=== PATIENT | male | born 1965 | race Caucasian/White ===

== ENCOUNTER 2020-01-23 18:56 | Inpatient (IN) | payer OTHER ==
[~2020-01-23] VITALS: Ht 182.9 cm; Wt 122.9 kg
--- NOTE | 2020-01-23 19:38 | ER.PDOC ---
General Chief Complaint: Requesting Medical Care Stated Complaint: BACK PAIN/ABD PAIN Time seen by MD: 19:31 Source: patient, family Exam Limitations: no limitations History of Present Illness Initial Comments Patient c/o sudden onset left flank pain radiating to he groin this evening. Pain became so severe it caused him to vomit. Nausea has now settled down, but left flank pain persists. Timing/Duration: 1-3 hours Severity/Quality: severe, sharpness, stabbing Radiation: flank (left), groin (left) Associated Symptoms: nausea/vomiting Exacerbated by: nothing Relieved By: nothing Allergies: Coded Allergies: No Known Allergies (Unverified , 01/23/20) Vital Signs First Vital Signs Date Time Temp Pulse Resp B/P (MAP) Pulse Ox O2 Delivery O2 Flow Rate FiO2 01/23/20 20:58 98.2 54 20 01/23/20 20:58 154/103 (120) 98 01/23/20 21:58 Nasal Canula 2.00 Last Vital Signs Date Time Temp Pulse Resp B/P (MAP) Pulse Ox O2 Delivery O2 Flow Rate FiO2 01/23/20 21:58 98.4 63 18 139/66 (90) 98 Nasal Canula 2.00 Past Medical History Medical History: hypertension Surgical History: no surgical history Family History Significant Family History: no pertinent family hx Social History Alcohol Use: none Drug Use: none Constitutional: diaphoresis (at onset of pain) EENTM: no symptoms reported Respiratory: no symptoms reported Cardiovascular: no symptoms reported Gastrointestinal: nausea, vomiting (x 1) Genitourinary: flank pain (left) Musculoskeletal: no symptoms reported Skin: no symptoms reported Psychiatric/Neurological: no symptoms reported Endocrine: no symptoms reported Hematologic/Lymphatic: no symptoms reported All Other Systems: Reviewed and Negative Physical Exam General Appearance: WD/WN, Moderate Distress (pacing around room in pain), Obese HEENT: PERRL/EOMI, Normal ENT Inspection Neck: Non-Tender, Full Range of Motion, Supple Respiratory: chest non-tender, lungs clear, normal breath sounds, no respiratory distress, no accessory muscle use Cardiovascular: Regular Rate, Rhythm, No Edema, No Murmur Gastrointestinal: Normal Bowel Sounds, No Pulsatile Mass, Soft Back: Normal Inspection, No CVA Tenderness, No Vertebral Tenderness Extremities: Normal Range of Motion, Non-Tender, No Pedal Edema, No Calf Tenderness Neurologic/Psychiatric: No Motor/Sensory Deficits, Alert, Normal Mood/Affect Skin: Normal Color, Warm/Dry Results/Orders Results/Orders Orders - FRANTZ MAY DO Cbc With Auto Diff (01/23/20 19:29) Comprehensive Metabolic Panel (01/23/20 19:29) Amylase (01/23/20 19:29) Lipase (01/23/20 19:29) PT (01/23/20 19:29) Partial Thromboplastin Time. (01/23/20 19:29) Urinalysis (01/23/20 19:29) Saline Lock (01/23/20 19:29) Ct Abd/Pelvis Wo Iv Contrast (01/23/20 19:29) Ketorolac Tromethamine (Toradol) (01/23/20 19:49) 0.9 % Sodium Chloride (Ns 1000ml) (01/23/20 19:48) Urine Culture (01/23/20 19:35) Tamsulosin Hcl (Flomax) (01/23/20 19:57) Tamsulosin Hcl (Flomax) (01/23/20 19:59) Fentanyl Citrate/Pf (Sublimaze) (01/23/20 21:21) Ondansetron Hcl/Pf (Zofran) (01/23/20 21:22) Ceftriaxone Sodium (Rocephin) (01/23/20 21:26) Ondansetron Hcl/Pf (Zofran) (01/23/20 21:47) Ceftriaxone Sodium (Rocephin) (01/23/20 21:47) Fentanyl Citrate/Pf (Sublimaze) (01/23/20 21:47) Fentanyl Citrate/Pf (Sublimaze) (01/23/20 22:47) Vital Signs Date Time Temp Pulse Resp B/P (MAP) Pulse Ox O2 Delivery O2 Flow Rate FiO2 01/23/20 21:58 98.4 63 18 139/66 (90) 98 Nasal Canula 2.00 01/23/20 20:58 98.2 54 20 98 01/23/20 20:58 98.2 54 20 154/103 (120) 98 01/23/20 20:58 98.2 54 20 Administered Medications Medications (Trade) Dose Ordered Sig/Lucius Route PRN Reason Start Time Stop Time Status Last Admin Dose Admin Ceftriaxone Sodium 1000 mg/ Sodium Chloride 100 ml @ 100 mls/hr STAT STAT IV 01/23/20 21:26 01/23/20 22:25 UNV 01/23/20 21:56 100 MLS/HR Fentanyl Citrate (Sublimaze) 100 mcg STAT STAT IV 01/23/20 21:21 01/23/20 21:23 DC 01/23/20 21:56 100 MCG Ketorolac Tromethamine (Toradol) 30 mg STAT STAT IV 01/23/20 19:49 01/23/20 19:50 UNV 01/23/20 19:53 30 MG Ondansetron HCl (Zofran) 4 mg STAT STAT IV 01/23/20 21:22 01/23/20 21:23 DC 01/23/20 21:56 4 MG Tamsulosin HCl (Flomax) 0.4 mg STAT STAT PO 01/23/20 19:57 01/23/20 19:58 DC 01/23/20 20:07 0.4 MG Laboratory Tests Test 01/23/20 19:35 White Blood Count 6.3 10^3/uL (4.5-11.0) Red Blood Count 5.02 10^6/uL (4.50-5.90) Hemoglobin 15.5 g/dL (13.9-16.3) Hematocrit 44.4 % (37.0-53.0) Mean Corpuscular Volume 88.4 fL (78-100) Mean Corpuscular Hemoglobin 30.9 pg (26-34) Mean Corpuscular Hemoglobin Concent 34.9 g/dL (33-36.5) Red Cell Distribution Width 12.9 % (11.5-14.5) Platelet Count 251 10^3/uL (150-400) Mean Platelet Volume 9.3 fL (7.8-11.0) Neutrophils (%) (Auto) 59.9 % (41.0-85.0) Lymphocytes (%) (Auto) 27.6 % (24.0-44.0) Monocytes (%) (Auto) 8.7 % (5.0-12.0) Neutrophils # (Auto) 3.8 10^3/uL (1.8-7.7) Lymphocytes # (Auto) 1.75 10^3/uL1 (1.0-4.8) Monocytes # (Auto) 0.6 10^3/uL (0.3-0.8) Absolute Immature Granulocyte (auto 0.01 10^3 u/L (0-2) Absolute Eosinophils (auto) 0.2 10^3/uL (0.0-0.2) Immature Granulocytes % 0.20 % (0.00-0.50) Eosinophils % 3.0 % (0.0-5.0) Basophils % 0.6 % (0.0-0.2) H Basophils # 0.0 10^3/uL (0.0-0.1) Prothrombin Time 11.1 SEC (9.3-11.3) Prothrombin Time INR (Non-Therap) 1.1 Activated Partial Thromboplast Time 22.6 SEC (24.67-30.72) Urine Collection Type UNKNOWN Urine Color YELLOW (YELLOW) Urine Appearance CLEAR (CLEAR) Urine Bilirubin NEGATIVE MG/DL (NEGATIVE) Urine Ketones NEGATIVE (NEGATIVE) Urine Specific [place] 1.030 (1.005-1.035) Urine pH 5.5 (5.0-6.0) Urine Protein 30 mg/dL (NEGATIVE) H Urine Urobilinogen NORMAL (NEGATIVE) Urine Nitrate NEGATIVE (NEGATAIVE) Urine Leukocyte Esterase NEGATIVE (NEGATIVE) Urine Blood LARGE (NEGATIVE) Urine RBC TNTC RBC/HPF (NONE SEEN) H Urine WBC 0-2 WBC/HPF (0-2) Urine Squamous Epithelial Cells RARE #/HPF (FEW) Urine Bacteria RARE (NONE SEEN) Urine Glucose NORMAL (NEGATIVE) Sodium Level 138 mmol/L (132-145) Potassium Level 3.8 mmol/L (3.6-5.2) Chloride Level 104.0 mmol/L (96-109) Carbon Dioxide Level 26.8 mmol/L (20.0-32) Anion Gap 11.0 Blood Urea Nitrogen 16 mg/dL (7-18) Creatinine 1.29 mg/dL (0.59-1.40) Estimated GFR () 70.8 (>/=60) Est GFR (CKD-EPI)(Non-Afr [place]) 58.5 (>/=60) BUN/Creatinine Ratio 12.0 Glucose Level 109 mg/dL (70-110) Calcium Level 9.5 mg/dL (8.4-10.5) Total Bilirubin 0.5 mg/dL (0.2-1.0) Aspartate Amino Transferase (AST) 18 U/L (0-35) Alanine Aminotransferase (ALT) 38 U/L (12-78) Alkaline Phosphatase 96 U/L (50-136) Total Protein 7.6 g/dL (6.4-8.2) Albumin 4.2 g/dL (3.4-5.0) Globulin 3.4 Albumin/Globulin Ratio 1.235 Amylase Level 55 U/L (25-115) Lipase 138 U/L (114-286) Progress Progress blood in urine, renal function WNL, WBC normal, no UTI though there is blood in urine--rocephin given prophylactically Toradol + 100 fentanyl + flomax + 50 fentanyl and patient is still writhing on the bed. I tried to reach Dr. Camp on home and cell phone unsuccessfully and VM has not been set up on either. Dr. Lambert agreed to admit patient to his service with consult Dr. Camp in the morning. EKG/XRAY/CT/US CT Comments: minimal L hydronephrosis and hydroureter with 2mm stone @ UVJ Consult/PCP Time Consult/PCP Called: 22:50 Consult/PCP: Dr. Camp Reason/Comments: unable to reach at home or cell number (mailboxes not set up) #2 Time Consult/PCP Called: 22:50 Consult/PCP: Dr. Lambert Reason/Comments: will admit ER DEPART Departure Time of Disposition: 22:57 Disposition: 09 ADMITTED INPATIENT Impression: Primary Impression: Renal colic on left side Additional Impressions: Ureterolithiasis Hydroureteronephrosis Condition: Improved Referrals: [facility] (PCP) PRIMARY CARE PROVIDER Duration or Time Spent with Pa: 30 min Problem Qualifiers FRANTZ MAY DO Jan 23, 2020 19:38
[2020-01-23 19:41] LABS: BASOPHIL % 0.6 % (0.0-0.2); EOSINOPHIL # 0.2 10^3/uL (0.0-0.2); LYMPHOCYTES # 1.75 10^3/uL1 (1.0-4.8); LYMPHOCYTES % 27.6 % (24.0-44.0); MEAN CORP HGB 30.9 pg (26-34); MONOCYTES # 0.6 10^3/uL (0.3-0.8); MONOCYTES % 8.7 % (5.0-12.0); NEUTROPHIL # 3.8 10^3/uL (1.8-7.7); NEUTROPHILS % 59.9 % (41.0-85.0); PLATELET COUNT 251 10^3/uL (150-400); RED CELL DISTRIBUTION WIDTH 12.9 % (11.5-14.5)
[2020-01-23] MEDS ORDERED: NS 1000ML 1,000 ML ONE (19:48)
[2020-01-23] MEDS ORDERED: TORADOL IV STA (19:49)
[2020-01-23 19:54] LABS: APPEARANCE,URINE CLEAR (CLEAR); BILIRUBIN,URINE NEGATIVE (NEGATIVE); UA COLOR YELLOW (YELLOW); UROBILINOGEN,URINE NORMAL (NEGATIVE)
--- NOTE | 2020-01-23 19:54 | NUR ---
CT PATIENT AMBULATED TO CT, STEADY GAIT. DIAPHORETIC DUE TO PAIN, TORADOL ADMINISTERED ORDERED.
[2020-01-23] MEDS ORDERED: FLOMAX PO STA (19:57)
[2020-01-23 19:59] LABS: CALCIUM 9.5 mg/dL (8.4-10.5); CARBON DIOXIDE 26.8 mmol/L (20.0-32)
[2020-01-23] MEDS ORDERED: FLOMAX ONE (19:59)
--- NOTE | 2020-01-23 20:46 | DIREP ---
PROCEDURE:CT ABDOMEN/PELVIS W/O CONTRAST COMPARISON:None. INDICATIONS:flank pain TECHNIQUE:Axial images were created through the abdomen and pelvis without intravenous contrast material. No oral contrast was administered. Sagittal and coronal reconstructions were performed from source images. FINDINGS: LUNG BASES:Normal. No visible pulmonary or pleural disease. LIVER:Normal. No significant liver lesions are identified. BILIARY:Minimal left hydronephrosis and hydroureter with distal obstructing stone measuring 2 mm at the left ureterovesicular junction. PANCREAS:Normal. No lesion, fluid collection, ductal dilatation, or atrophy. SPLEEN:Normal. No enlargement or focal lesion. ADRENALS:Normal. No mass or enlargement. URINARY TRACT:Normal. No focal lesions or hydronephrosis. AORTA/VASCULAR:Normal. No aneurysm. RETROPERITONEUM:Normal. No mass or adenopathy. BOWEL/MESENTERY:Normal. There is no intestinal obstruction, free fluid, free air or mesenteric inflammatory changes. ABDOMINAL WALL:Normal. No mass or hernia. PELVIC ORGANS:Normal. No visible mass. Pelvic organs appropriate for patient age. BONES:Normal for age. No bony lesion or acute fracture. OTHER:Negative. CONCLUSION:Minimal left hydronephrosis and hydroureter with 2 mm obstructing stone at the left ureterovesicular junction Dictated by: Jaylan Cabrera DO on 01/23/2020 at 08:42 PM
--- NOTE | 2020-01-23 20:57 | NUR ---
RESTROOM PATIENT AMBULATED TO RESTROOM.
[2020-01-23 20:58] VITALS: BP_SYST 154; BP_SYST 159; BP_DIAS 103
[2020-01-23] MEDS ORDERED: SUBLIMAZE IV STA ×2 (21:21→22:47)
[2020-01-23] MEDS ORDERED: ZOFRAN IV STA (21:22)
[2020-01-23] MEDS ORDERED: ROCEPHIN 1,000 MG in NS 100ML 100 ML IV STA (21:26)
[2020-01-23] MEDS ORDERED: ZOFRAN ONE (21:47)
[2020-01-23] MEDS ORDERED: SUBLIMAZE ONE ×2 (21:47→22:51)
[2020-01-23] MEDS ORDERED: ROCEPHIN ONE (21:47)
[2020-01-23 21:58] VITALS: BP 139/66
--- NOTE | 2020-01-23 22:00 | NUR ---
VOMITING PATIENT PAIN INCREASED, VOMITING X3 MEDICATIONS ADMINISTERED ORDERED PAIN IMPROVED ALMOST IMMEDIATELY AFTER ADMINISTRATION. EXPLAINED THAT WITH FENTANYL PATIENT MAY NEED OXYGEN FOR A LITTLE BIT DUE TO DECREASED RESPIRATIONS, DECREASED DEPTH OF RESPIRATIONS. PATIENT AND PATIENT VERBALIZED UNDERSTANDING.
--- NOTE | 2020-01-23 22:01 | NUR ---
OXYGEN PATIENT OXYGEN SATS DECREASED TO 89% ON RA AFTER FENTANYL PATIENT PLACED ON 2L/NC, INCREASED BACK TO 98%.
--- NOTE | 2020-01-23 23:00 | NUR ---
ADMISSION DR. MAY ON THE PHONE WITH THE HOSPITALIST REGARDING PATIENT ADMISSION, ACCEPTED BY HOSPITALIST PATIENT UPDATED, EXPLAINED MED SURG OVERFLOW STATUS, ICU ROOM ASSIGNMENT. PATIENT AND PATIENT VERBALIZED UNDERSTANDING.
--- NOTE | 2020-01-23 23:44 | NUR ---
ARRIVAL: PT ARRIVED ON UNIT VIA WHEELCHAIR FROM ER. REPORT RECEIVED FROM CHADWICK [facility]. ASSUMED PT CARE. PT TRANSFERRED SELF TO ICU BED WITHOUT DIFFICULTY. PT CONNECTED TO MONITORS AND ORIENTED TO ICU ENVIRONMENT WITH UNDERSTANDING. PT DENIED ANY PAIN OR NEEDS AT THIS TIME. CALL LIGHT AND TABLE WITHIN REACH. BED IN LOW POSITION, LOCKED, HOB IS ELEVATED AND SIDE RAILS UP X2. WILL CONTINUE TO MONITOR.
[2020-01-23 23:51] VITALS: BP 147/68
[2020-01-24] MEDS: NS 1000ML 1,000 ML IV SCH ×4 (00:02→21:14)
[2020-01-24 00:25] VITALS: BP 152/89
[2020-01-24] MEDS: SUBLIMAZE IV PRN ×2 (03:04→06:59)
[2020-01-24 04:01] VITALS: BP 146/78
[2020-01-24 05:42] LABS: BASOPHIL % 0.1 % (0.0-0.2); LYMPHOCYTES # 0.54 10^3/uL1 (1.0-4.8); MEAN CORP HGB 31.6 pg (26-34); MONOCYTES # 0.4 10^3/uL (0.3-0.8); MONOCYTES % 3.5 % (5.0-12.0); NEUTROPHIL # 9.9 10^3/uL (1.8-7.7); NEUTROPHILS % 91.3 % (41.0-85.0); PLATELET COUNT 227 10^3/uL (150-400); RED CELL DISTRIBUTION WIDTH 13.1 % (11.5-14.5)
[2020-01-24 05:59] LABS: CALCIUM 9.6 mg/dL (8.4-10.5)
--- NOTE | 2020-01-24 07:00 | NUR ---
REPORT TO ONCOMING SHIFT. PT CARE RELINQUISHED.
[2020-01-24 07:36] VITALS: BP 152/79
[2020-01-24] MEDS ORDERED: ZOFRAN IV PRN (08:00)
[2020-01-24] MEDS: TORADOL IV PRN ×3 (08:25→22:26)
[2020-01-24] MEDS: FLOMAX PO SCH (09:31)
--- NOTE | 2020-01-24 09:56 | NUR ---
DR. VALENZUELA @ BEDSIDE NEW ORDERS RECEIVED FOR MORPHINE 4MG IV Q6 HOURS TO GIVE IN BETWEEN DOSES OF TORADOL FOR PAIN. DISCONTINUE FENTANYL. RBVO.
[2020-01-24] MEDS ORDERED: MORPHINE SULFATE IV PRN (10:30)
--- NOTE | 2020-01-24 11:44 | PCM.HP ---
History of Present Illness Reason for Visit: (1) HTN (hypertension) ICD Code: I10 - Essential (primary) hypertension SNOMED: 72701507 (2) Ureterolithiasis ICD Code: N20.1 - Calculus of ureter SNOMED: 93098796 (3) Hydroureteronephrosis ICD Code: N13.30 - Unspecified hydronephrosis SNOMED: 04677644 (4) Renal colic on left side ICD Code: N23 - Unspecified renal colic SNOMED: 3295175 Hx of Present Illness Patient is a 54-year-old male with no significant past medical history other than hypertension well-controlled comes to the emergency department with 3-day history of left abdominal quadrant radiating to the back flank severe pain rated pain to be 10/10 in severity and nothing makes pain better other than the medications. At the emergency department patient had a CAT scan that reported 2 mm stone obstructing the uteroversicular junction With hydronephrosis. Patient was given Toradol, and opiate medication with no improvement of pain was started on IV fluids and due to intractable pain patient was admitted to the medical floor for observation for further evaluation and management and for urology consult. Travel History [place] RISK:Travel to/contact w: No Review of Systems Constitutional: No: Fever, Chills, Sweats, Weakness, Malaise Eyes: No: Pain, Vision change, Conjunctivae inflammation, Eyelid inflammation, Redness ENT: No: Ear pain, Ear discharge, Nose pain, Nose discharge, Nose congestion, Mouth pain, Mouth swelling, Throat pain, Throat swelling Respiratory: No: Cough, Dry, Shortness of breath, SOB with excertion, Wheezing, Hemoptysis, Pleuritic Pain, Sputum, Wheezing Cardiovascular: No: Chest Pain, Palpitations, Orthopnea, Paroxysmal Noc. Dyspnea, Edema, Lt Headedness Gastrointestinal: Nausea, Abdominal Pain; No: Vomiting, Diarrhea, Constipation, Melena, Hematochezia Genitourinary: No Dysuria, No Frequency, No Incontinence, No Hematuria, No Retention Musculoskeletal: No: neck pain, shoulder pain, arm pain, back pain, hand pain, leg pain, foot pain Skin: No: Rash, Lesions, Jaundice, Bruising Neurological: No: Weakness, Numbness, Incoordination, Change in speech, Confusion, Seizures Allergies: Coded Allergies: No Known Allergies (Unverified , 01/23/20) VTE VTE Risk Total Score: 1 VTE Risk Score VTE Risk: Score 0-1 = Low Risk (Aggressive mobilization; early ambulation; no VTE prophylaxis required) Score 2: Moderate Risk (Intermittent/Pneumatic Compression Device OR Lovenox/Heparin/Coumadin) Score 3-4: High Risk (Intermittent/Pneumatic Compression Device AND Lovenox/Heparin/Coumadin) Score > or =5: Highest Risk (Intermittent/Pneumatic Compression Device AND Lovenox/Heparin/Coumadin) VTE VTE Present on Admission: No Currently receiving anticoagul: No VTE Risk Total Score: 1 Exam Vital Signs Vital Signs Date Time Temp Pulse Resp B/P (MAP) Pulse Ox O2 Delivery O2 Flow Rate FiO2 01/24/20 07:36 Room Air 01/24/20 07:36 98.7 99 16 152/79 (103) 97 01/23/20 21:58 2.00 General Appearance: Alert, Oriented X3, Cooperative, moderate distress HEENT: Atraumatic, PERRLA, EOMI Respiratory: Clear to auscultation, Normal air movement Cardiovascular: Regular rate, Normal S1, Normal S2, No murmurs Abdominal: Normal bowel sounds, Soft, No tenderness, No hepatospenomegaly, No masses Extremities: No clubbing, No cyanosis, No edema, Normal pulses, No tendern ess/swelling Skin: No rash, No breakdown, No lesions, Rash Neuro: Normal gait, Normal speech, Strength at 5/5 X4 ext, Normal tone, Sensation intact, Cranial nerves 3-12 NL, Reflexes 2+ Psych/Mental Status: Mental status NL, Mood NL Assessment/Plan Assessment/Plan Problems: (1) Ureterolithiasis Status: Acute Assessment & Plan: Continue with IV fluid hydration Urology consult Pain control with Toradol and opioids Flomax 0.4 mg p.o. daily SEVERITY: MODERATE PERSISTENT ICD Code: N20.1 - Calculus of ureter SNOMED: 09424966 (2) Hydroureteronephrosis Status: Acute Assessment & Plan: Likely due to obstructive calculi. Continue IV fluid hydration and reevaluate. Flomax 0.4 mg p.o. daily Urology consult ICD Code: N13.30 - Unspecified hydronephrosis SNOMED: 48154438 (3) HTN (hypertension) Status: Chronic Assessment & Plan: Continue to optimize blood pressure Continue patient's home dose medications for blood pressure Start patient on hydrochlorothiazide 25 mg twice daily ICD Code: I10 - Essential (primary) hypertension SNOMED: 01214392 (4) Renal colic on left side Status: Acute Assessment & Plan: Pain control with Toradol and morphine ICD Code: N23 - Unspecified renal colic SNOMED: 5413252 Plan Urology is not in town Continue current management including IV fluids, pain control, blood pressure control BAILEE VALENZUELA MD Jan 24, 2020 11:44
[2020-01-24 12:07] VITALS: BP 126/66
--- NOTE | 2020-01-24 14:02 | NUR ---
COMPLAINING OF HEADACHE. NOTIFIED DR. VALENZUELA. NEW ORDERS RECEIVED FOR TYLENOL 1000MG PO Q4HR PRN. RBTO.
[2020-01-24] MEDS ORDERED: TYLENOL PO PRN (14:30)
[2020-01-24 14:54] LABS: DIFFERENTIAL COMMENT NORMAL; LYMPHOCYTE 4 % (25-36); MONOCYTE 3 % (3-9); SEGMENTED NEUTROPHILS 93 % (31-76)
--- NOTE | 2020-01-24 14:56 | NUR ---
DISCHARGE PLAN PATIENT LIVES AT HOME WITH HIS SPOUSE. HE IS IND OF ADLS. HE DENIES USE OF DME IN THE HOME. HIS PCP IS [facility]. DISCHARGE PLAN IS FOR PT TO D/C BACK HOME WITH SPOUSE TO ROUTINE CARE. CM WILL CONTINUE TO MONITOR NEEDS OF PT.
--- NOTE | 2020-01-24 16:12 | DIET.OP ---
Nutrition Asmt/Malnutrit 2-17 Actual Date of Review: Jan 24, 2020 Nutritional Screening: Nutritional Screening Pertinent Medical Hx/Surgical: Htn Subjective Information: consulted for malnutrition screen, no recent change in appetite, po intake Current Diet Order/Nutrition S: NPO Patient /S.O: Not Indicated Pertinent Meds Current Medications Medications (Trade) Dose Ordered Sig/Lucius PRN Reason Start Time Stop Time Status Last Admin Acetaminophen (Tylenol) 1,000 mg Q4 PRN PAIN 1 - 3 01/24/20 14:30 02/23/20 14:29 01/24/20 14:10 Ceftriaxone Sodium 1000 mg/ Sodium Chloride 100 ml @ 100 mls/hr Q24HRS 01/24/20 23:00 02/23/20 22:59 Hydrochlorothiazide (Hydrochlorothiazide) 25 mg BID 01/24/20 21:00 02/23/20 20:59 Ketorolac Tromethamine (Toradol) 30 mg Q6H PRN PAIN 4 - 6 01/24/20 08:30 01/29/20 08:29 01/24/20 08:25 Morphine Sulfate (Morphine Sulfate) 4 mg Q6HR PRN PAIN 7 - 10 01/24/20 10:30 02/23/20 10:29 Ondansetron HCl (Zofran) 4 mg Q6HR PRN NAUSEA / VOMITING 01/24/20 10:30 02/23/20 07:59 Sodium Chloride 1,000 ml @ 150 mls/hr Q8H 01/23/20 23:00 02/22/20 22:59 01/24/20 14:21 Tamsulosin HCl (Flomax) 0.4 mg DAILY 01/24/20 09:00 02/23/20 08:59 01/24/20 09:31 Pertinent Labs Laboratory Tests 01/23/20 19:35: White Blood Count 6.3, Red Blood Count 5.02, Hemoglobin 15.5, Hematocrit 44.4, Mean Corpuscular Volume 88.4, Mean Corpuscular Hemoglobin 30.9, Mean Corpuscular Hemoglobin Concent 34.9, Red Cell Distribution Width 12.9, Platelet Count 251, Mean Platelet Volume 9.3, Neutrophils (%) (Auto) 59.9, Lymphocytes (%) (Auto) 27.6, Monocytes (%) (Auto) 8.7, Neutrophils # (Auto) 3.8, Lymphocytes # (Auto) 1.75, Monocytes # (Auto) 0.6, Absolute Immature Granulocyte (auto 0.01, Absolute Eosinophils (auto) 0.2, Immature Granulocytes % 0.20, Eosinophils % 3.0, Basophils % 0.6H, Basophils # 0.0, Prothrombin Time 11.1, Prothrombin Time INR (Non-Therap) 1.1, Activated Partial Thromboplast Time 22.6L, Urine Collection Type UNKNOWN, Urine Color YELLOW, Urine Appearance CLEAR, Urine Bilirubin NEGATIVE, Urine Ketones NEGATIVE, Urine Specific [place] 1.030, Urine pH 5.5, Urine Protein 30 mg/dLH, Urine Urobilinogen NORMAL, Urine Nitrate NEGATIVE, Urine Leukocyte Esterase NEGATIVE, Urine Blood LARGE, Urine RBC TNTCH, Urine WBC 0-2, Urine Squamous Epithelial Cells RARE, Urine Bacteria RARE, Urine Glucose NORMAL, Sodium Level 138, Potassium Level 3.8, Chloride Level 104.0, Carbon Dioxide Level 26.8, Anion Gap 11.0, Blood Urea Nitrogen 16, Creatinine 1.29, Estimated GFR () 70.8, Est GFR (CKD-EPI)(Non-Afr [place]) 58.5, BUN/Creatinine Ratio 12.0, Glucose Level 109, Calcium Level 9.5, Total Bilirubin 0.5, Aspartate Amino Transf (AST/SGOT) 18, Alanine Aminotransferase (ALT/SGPT) 38, Alkaline Phosphatase 96, Total Protein 7.6, Albumin 4.2, Globulin 3.4, Albumin/Globulin Ratio 1.235, Amylase Level 55, Lipase 138 01/24/20 05:19: White Blood Count 10.8, Red Blood Count 4.56, Hemoglobin 14.4, Hematocrit 41.3, Mean Corpuscular Volume 90.6, Mean Corpuscular Hemoglobin 31.6, Mean Corpuscular Hemoglobin Concent 34.9, Red Cell Distribution Width 13.1, Platelet Count 227, Mean Platelet Volume 9.5, Neutrophils (%) (Auto) 91.3*H, Lymphocytes (%) (Auto) 5.0*L, Monocytes (%) (Auto) 3.5L, Neutrophils # (Auto) 9.9H, Lymphocytes # (Auto) 0.54L, Monocytes # (Auto) 0.4, Absolute Immature Granulocyte (auto 0.01, Absolute Eosinophils (auto) 0.0, Immature Granulocytes % 0.10, Eosinophils % 0.0, Basophils % 0.1, Basophils # 0.0, Sodium Level 142, Potassium Level 4.3, Chloride Level 107.0, Carbon Dioxide Level 26.0, Anion Gap 13.3, Blood Urea Nitrogen 19H, Creatinine 1.74H, Estimated GFR () 50.1, Est GFR (CKD-EPI)(Non-Afr [place]) 41.4, BUN/Creatinine Ratio 10.0, Glucose Level 135H, Calcium Level 9.6, Total Bilirubin 0.6, Aspartate Amino Transf (AST/SGOT) 17, Alanine Aminotransferase (ALT/SGPT) 32, Alkaline Phosphatase 88, Total Protein 7.1, Albumin 3.7, Globulin 3.4, Albumin/Globulin Ratio 1.088 01/24/20 05:53: Differential Total Cells Counted 100, Segmented Neutrophils 93H, Lymphocytes 4L, Monocytes 3, Differential Comment NORMAL, Platelet Estimate ADEQUATE, Platelet Morphology NORMAL, Blood Morphology Comment NORMAL MORPHOLOGY Height (Feet): 5 Height (Inches): 11 Current Weight: 262 Recent Weight Change: No Weight Status: Morbid Obese GI Symptoms: [place] Food Allergies: No Cultural/Ethnic/Church [place]: none reported Usual Diet at Home: regular Skin Integrity/Comment: No Current %PO: NPO BEE in Kcals: Use Current Weight Calories/Kcals/Kg: msj .8-1 Kcals Calculated: 1663 - 2078 Protein g/k% kcals Protein Calculated: 83-104 Fluid: ml: [id number] Nutritional Problem: Nutr. Problems Present Problems: Inadequate oral intake Etiology: npo Signs/Symptoms: pt is currently NPO, meeting 0% of needs Recommendations by RD: Increase Calorie Intake RD Comments: Will monitor course of treatment and recommended when needed Expected Outcomes goals: 1. Diet order will be advanced within the next 3 days. Discharge planning in progress with interdisciplinary team. Malnutrtion/Nutrition Risk Edu: SUSANNE Rojo Jan 24, 2020 16:12
[2020-01-24 17:00] VITALS: BP 136/76
[2020-01-24] MEDS: ZOFRAN IV PRN (17:14)
--- NOTE | 2020-01-24 18:53 | NUR ---
REPORT GIVEN TO ONCOMING SHIFT. RELINQUISHED CARE.
--- NOTE | 2020-01-24 18:54 | NUR ---
REPORT RECEIVED FROM LOLA BRYANT RN. ASSUMED PT CARE.
[2020-01-24 20:00] VITALS: BP 120/70
[2020-01-24] MEDS: HYDROCHLOROTHIAZIDE PO SCH (21:12)
[2020-01-24] MEDS ORDERED: ROCEPHIN 1,000 MG in NS 100ML 100 ML IV SCH (23:00)
[2020-01-25] VITALS: BP 121/78
[2020-01-25] MEDS: TORADOL IV PRN ×2 (03:23→09:36)
[2020-01-25 04:00] VITALS: BP 132/74
[2020-01-25] MEDS: NS 1000ML 1,000 ML IV SCH (05:08)
--- NOTE | 2020-01-25 06:12 | NUR ---
CHG BATH: PT PROVIDED WITH CHG WIPES TO GIVE SELF BATH. PT AT BEDSIDE BATHING SELF.
--- NOTE | 2020-01-25 07:04 | NUR ---
REPORT TO ONCOMING SHIFT. PT CARE RELINQUISHED.
[2020-01-25 07:46] LABS: BASOPHIL % 0.3 % (0.0-0.2); EOSINOPHIL # 0.1 10^3/uL (0.0-0.2); EOSINOPHIL % 0.5 % (0.0-5.0); LYMPHOCYTES % 10.4 % (24.0-44.0); MEAN CORP HGB 31.5 pg (26-34); MONOCYTES # 1.1 10^3/uL (0.3-0.8); NEUTROPHIL # 8.4 10^3/uL (1.8-7.7); NEUTROPHILS % 78.7 % (41.0-85.0); PLATELET COUNT 197 10^3/uL (150-400); RED CELL DISTRIBUTION WIDTH 13.5 % (11.5-14.5)
[2020-01-25 07:57] LABS: CALCIUM 8.7 mg/dL (8.4-10.5); CARBON DIOXIDE 26.7 mmol/L (20.0-32)
[2020-01-25 08:01] VITALS: BP 154/83
[2020-01-25] MEDS: ZOFRAN IV PRN (08:02)
[2020-01-25] MEDS: FLOMAX PO SCH (09:36)
[2020-01-25] MEDS: HYDROCHLOROTHIAZIDE PO SCH (09:37)
--- NOTE | 2020-01-25 10:15 | NUR ---
Off unit Patient transferred off unit via wheelchair for CT.
--- NOTE | 2020-01-25 11:02 | DIREP ---
PROCEDURE:CT ABDOMEN/PELVIS W/O CONTRAST COMPARISON:[facility], CT, CT ABD/PELVIS W/O, 01/23/2020, 07:39 PM. INDICATIONS:KIDNEY STONE TECHNIQUE:Axial images were created through the abdomen and pelvis without intravenous contrast material. No oral contrast was administered. Sagittal and coronal reconstructions were performed from source images. FINDINGS: LUNG BASES:Normal. No visible pulmonary or pleural disease. LIVER:Normal. No significant liver lesions are identified. BILIARY:Normal. No visible dilatation or calcification. PANCREAS:Normal. No lesion, fluid collection, ductal dilatation, or atrophy. SPLEEN:Normal. No enlargement or focal lesion. ADRENALS:Normal. No mass or enlargement. URINARY TRACT:Moderate dilatation of the left renal collecting system and ureter, marked edema of the left perinephric and periureteral fat. 2 mm calculus in the distal left ureter, approximately 1-2 cm above the left ureterovesical junction. No acute pathology in the right kidney or ureter. AORTA/VASCULAR:Normal. No aneurysm. RETROPERITONEUM:Normal. No mass or adenopathy. BOWEL/MESENTERY:No intestinal obstruction, free air, or free fluid. Multiple colonic diverticula without diverticulitis. Some residual oral contrast or opaque medication identified in the colon. Appendix not definite identified. No evidence of appendicitis. ABDOMINAL WALL:Small bilateral fat containing inguinal hernias are probably not clinically significant. PELVIC ORGANS:Normal. No visible mass. Pelvic organs appropriate for patient age. BONES:No acute pathology. Degenerative changes are noted in the spine. Minimal grade 1 spondylolisthesis at L4-5 due to degenerative changes. Marked acquired central canal spinal stenosis noted at multiple levels due to combinations of degenerative change and congenitally short pedicles. Spinal stenosis is greatest at the L3-4 through L5-S1 levels. OTHER:Negative. CONCLUSION: 1. Compared to the prior exam, a 2 mm obstructing calculus remains in the distal ureter, approximately 1-2 cm above the level of the left ureterovesical junction. Despite the small size of this calculus, there is now marked left perinephric and periureteral edema, indicative of very high-grade obstruction caused by this relatively small calculus. 2. Colonic diverticulosis without diverticulitis. 3. Please see above discussion for details of other findings. Dictated by: Anthony Vega M.D. on 01/25/2020 at 10:52 AM
[2020-01-25] MEDS ORDERED: TORADOL IV PRN (11:30)
[2020-01-25 12:02] VITALS: BP 150/86
--- NOTE | 2020-01-25 13:14 | PRM.DC ---
Discharge Summary Date of Discharge: Jan 25, 2020 Time of Request to Discharge: 11:00 Hospital Course Patient is a 54-year-old male with medical history of hypertension who was adm itted for kidney stone located in the left ureterovesicular junction with obstruction causing hydronephrosis and hydroureter with 2 mm of stone. Patient was admitted to the medical floor and started on IV fluid hydration and pain control. On admission patient was noted to have acute kidney injury of 1.8 on creatinine. Which was worsened to 2.07 creatinine level which we believe was contributed by the NSAIDs as well as kidney stones. During the hospital stay patient required more pain control [id number]. Was started on Toradol for pain control and continue to require opioid medication for more pain control. Urology on our facility here was unavailable until the seventh of this month patient continued to be in pain. Repeated CT of the abdomen and pelvis without contrast reported now marked left perinephric and periureteral edema, indicative of very high-grade obstruction caused by this relatively small calculus. Patient was therefore planned for transfer to a higher level of care where urology may be available to [facility] for patient. I discussed case with Dayna in [place] who accepted patient and patient was transferred in stable condition. General: Alert, Oriented X3, Cooperative, mild distress HEENT: Atraumatic, PERRLA, EOMI, Mucous membr. moist/pink Neck: Supple, No JVD, No thyromegaly, +2 carotid pulse wo bruit Lungs: Clear to auscultation, Normal air movement Heart: Regular rate, Normal S1, Normal S2, No murmurs Abdomen: Normal bowel sounds, Soft, No tenderness, No hepatospenomegaly Extremities: No clubbing, No cyanosis, No edema, Normal pulses, No tenderness/swelling Skin: No rashes, No breakdown, No significant lesion Neuro: Normal gait, Normal speech, Strength at 5/5 X4 ext, Normal tone, Sensation intact, Cranial nerves 3-12 NL, Reflexes 2+ Psych/Mental Status: Mental status NL, Mood NL Sepsis Evaluation @ Discharge 01/24/20 01:26 Course Sepsis Screening Results: Posi: NEGATIVE Sepsis Qualifier/Stage: NO DEFINITE RISK Duration or Total Time Spent w: 30 min Vitals & review Data Vital Sign - Last 24 Hours 01/24/20 01/24/20 01/24/20 01/24/20 17:00 19:54 20:00 21:12 Temp 98.6 98.6 Pulse 75 82 Resp 18 18 B/P (MAP) 136/76 (96) 120/70 (87) 120/70 Pulse Ox 97 92 O2 Delivery Room Air 01/25/20 01/25/20 01/25/20 01/25/20 00:00 04:00 08:01 09:37 Temp 99.1 98.5 98.6 Pulse 66 65 Resp 16 18 18 B/P (MAP) 121/78 (92) 132/74 (93) 154/83 (106) 154/83 Pulse Ox 93 96 97 Intake and Output 01/25/20 07:00 Intake Total 4959 ml Output Total 655 ml Balance 4304 ml Laboratory Tests Test 01/23/20 19:35 01/24/20 05:19 01/24/20 05:53 01/25/20 07:28 White Blood Count 6.3 10^3/uL 10.8 10^3/uL 10.6 10^3/uL Red Blood Count 5.02 10^6/uL 4.56 10^6/uL 4.32 10^6/uL Hemoglobin 15.5 g/dL 14.4 g/dL 13.6 g/dL Hematocrit 44.4 % 41.3 % 39.5 % Mean Corpuscular Volume 88.4 fL 90.6 fL 91.4 fL Mean Corpuscular Hemoglobin 30.9 pg 31.6 pg 31.5 pg Mean Corpuscular Hemoglobin Concent 34.9 g/dL 34.9 g/dL 34.4 g/dL Red Cell Distribution Width 12.9 % 13.1 % 13.5 % Platelet Count 251 10^3/uL 227 10^3/uL 197 10^3/uL Mean Platelet Volume 9.3 fL 9.5 fL 9.5 fL Neutrophils (%) (Auto) 59.9 % 91.3 % 78.7 % Lymphocytes (%) (Auto) 27.6 % 5.0 % 10.4 % Monocytes (%) (Auto) 8.7 % 3.5 % 10.0 % Neutrophils # (Auto) 3.8 10^3/uL 9.9 10^3/uL 8.4 10^3/uL Lymphocytes # (Auto) 1.75 10^3/uL1 0.54 10^3/uL1 1.10 10^3/uL1 Monocytes # (Auto) 0.6 10^3/uL 0.4 10^3/uL 1.1 10^3/uL Absolute Immature Granulocyte (auto 0.01 10^3 u/L 0.01 10^3 u/L 0.01 10^3 u/L Absolute Eosinophils (auto) 0.2 10^3/uL 0.0 10^3/uL 0.1 10^3/uL Immature Granulocytes % 0.20 % 0.10 % 0.10 % Eosinophils % 3.0 % 0.0 % 0.5 % Basophils % 0.6 % 0.1 % 0.3 % Basophils # 0.0 10^3/uL 0.0 10^3/uL 0.0 10^3/uL Prothrombin Time 11.1 SEC Prothrombin Time INR (Non-Therap) 1.1 Activated Partial Thromboplast Time 22.6 SEC Urine Collection Type UNKNOWN Urine Color YELLOW Urine Appearance CLEAR Urine Bilirubin NEGATIVE MG/DL Urine Ketones NEGATIVE Urine Specific [place] 1.030 Urine pH 5.5 Urine Protein 30 mg/dL Urine Urobilinogen NORMAL Urine Nitrate NEGATIVE Urine Leukocyte Esterase NEGATIVE Urine Blood LARGE Urine RBC TNTC RBC/HPF Urine WBC 0-2 WBC/HPF Urine Squamous Epithelial Cells RARE #/HPF Urine Bacteria RARE Urine Glucose NORMAL Sodium Level 138 mmol/L 142 mmol/L 141 mmol/L Potassium Level 3.8 mmol/L 4.3 mmol/L 3.8 mmol/L Chloride Level 104.0 mmol/L 107.0 mmol/L 107.0 mmol/L Carbon Dioxide Level 26.8 mmol/L 26.0 mmol/L 26.7 mmol/L Anion Gap 11.0 13.3 11.1 Blood Urea Nitrogen 16 mg/dL 19 mg/dL 23 mg/dL Creatinine 1.29 mg/dL 1.74 mg/dL 2.07 mg/dL Estimated GFR () 70.8 50.1 41.0 Est GFR (CKD-EPI)(Non-Afr Guamanian) 58.5 41.4 33.9 BUN/Creatinine Ratio 12.0 10.0 11.0 Glucose Level 109 mg/dL 135 mg/dL 102 mg/dL Calcium Level 9.5 mg/dL 9.6 mg/dL 8.7 mg/dL Total Bilirubin 0.5 mg/dL 0.6 mg/dL Aspartate Amino Transf (AST/SGOT) 18 U/L 17 U/L Alanine Aminotransferase (ALT/SGPT) 38 U/L 32 U/L Alkaline Phosphatase 96 U/L 88 U/L Total Protein 7.6 g/dL 7.1 g/dL Albumin 4.2 g/dL 3.7 g/dL Globulin 3.4 3.4 Albumin/Globulin Ratio 1.235 1.088 Amylase Level 55 U/L Lipase 138 U/L Differential Total Cells Counted 100 #CELLS Segmented Neutrophils 93 % Lymphocytes 4 % Monocytes 3 % Differential Comment NORMAL Platelet Estimate ADEQUATE Platelet Morphology NORMAL Blood Morphology Comment NORMAL MORPHOLOGY Current Medications Medications (Trade) Dose Ordered Sig/Lucius PRN Reason Start Time Stop Time Status Last Admin Acetaminophen (Tylenol) 1,000 mg Q4 PRN PAIN 1 - 3 01/24/20 14:30 02/23/20 14:29 01/24/20 14:10 Ceftriaxone Sodium 1000 mg/ Sodium Chloride 100 ml @ 100 mls/hr Q24HRS 01/24/20 23:00 02/23/20 22:59 01/24/20 22:54 Hydrochlorothiazide (Hydrochlorothiazide) 25 mg BID 01/24/20 21:00 02/23/20 20:59 01/25/20 09:37 Ketorolac Tromethamine (Toradol) 15 mg Q6H PRN PAIN 4 - 6 01/25/20 11:30 01/29/20 08:29 Morphine Sulfate (Morphine Sulfate) 4 mg Q6HR PRN PAIN 7 - 10 01/24/20 10:30 02/23/20 10:29 01/25/20 07:55 Ondansetron HCl (Zofran) 4 mg Q6HR PRN NAUSEA / VOMITING 01/24/20 10:30 02/23/20 07:59 01/25/20 08:02 Sodium Chloride 1,000 ml @ 150 mls/hr Q8H 01/23/20 23:00 02/22/20 22:59 01/25/20 05:08 Tamsulosin HCl (Flomax) 0.4 mg DAILY 01/24/20 09:00 02/23/20 08:59 01/25/20 09:36 LEVEL 1 SEPSIS INFECTION CRITE: ABX Therapy LEVEL 2-SIRS (LIST ALL THAT AP: HR>90/min Cardiovascular Evidence: Not Assessed or None Hematologic Evidence: None/Not assessed Hepatic Evidence: None/Not assessed Metabolic Evidence: None/Not assessed Neurological Evidence: None/Not assessed Respiratory Evidence: None/Not assessed Renal Evidence: None/Not assessed O2 Sat by Pulse Oximetry: 97 Oxygen Flow Rate: 2.00 Plan Problems: (1) Acute kidney injury Status: Acute ICD Code: N17.9 - Acute kidney failure, unspecified SNOMED: 5867229, 63399374 (2) Ureterolithiasis Status: Acute ICD Code: N20.1 - Calculus of ureter SNOMED: 91278676 (3) Hydroureteronephrosis Status: Acute ICD Code: N13.30 - Unspecified hydronephrosis SNOMED: 57641706 (4) Renal colic on left side Status: Acute ICD Code: N23 - Unspecified renal colic SNOMED: 5711070 (5) HTN (hypertension) Status: Chronic ICD Code: I10 - Essential (primary) hypertension SNOMED: 48926370 Assessment Patient is being transferred to [facility] for urology consult and surgery to break kidney stone. Discharge Disposition: BAILEE Wilkinson MD Jan 25, 2020 13:14
--- NOTE | 2020-01-25 13:53 | NUR ---
[facility] notified of transfer
--- NOTE | 2020-01-25 14:13 | NUR ---
Discharge Patient transferred off unit via stretcher with EMS to [facility]- Accepting Physician Dr. Stark. Relinquished care of pt. No s/s of distress noted.
[2020-01-25 14:34] VITALS: BP 146/89
--- NOTE | 2020-01-25 14:36 | NUR ---
Report Report called into Elizabet GENAO at [facility].
== END 2020-01-25 14:13 | disposition short-term general hospital (02) | DRG 694 ==
LOC: ER 18:56 → ICU 23:00 → EDBEDREQ 23:02 → EDBEDREQSVC 23:04 → EDBEDREQ 23:04
PROVIDERS: ADMIT Student in an Organized Health Care Education/Training Program; ATTEND Student in an Organized Health Care Education/Training Program
DX: N13.2 Hydronephrosis with renal and ureteral calculous obstruction (principal); N17.9 Acute kidney failure, unspecified; I10 Essential (primary) hypertension
CPT/HCPCS: 36415; 74176; 80048; 80053; 81000; 82150; 83690; 85025; 85610; 85730; 87086; 99285; G0378; J0696; J1885; J2270; J2405; J3010; J7030; J7050

== ENCOUNTER → 2020-03-24 | Outpatient (CLI) | payer OTHER ==
--- NOTE | 2020-03-24 11:12 | DIREP ---
PROCEDURE:US KIDNEYS-BILAT COMPARISON:[facility], CT, CT ABD/PELVIS W/O, 01/25/2020, 10:25 AM. [facility], CT, CT ABD/PELVIS W/O, 01/23/2020, 07:39 PM. [facility], US, US KIDNEYS-BILAT, 07/24/2019, 08:47 AM. INDICATIONS:N20.1 CALCULUS OF URETER TECHNIQUE:Ultrasound examination was performed of the kidneys and bladder. FINDINGS: RIGHT KIDNEY:13.2 x 6.9 x 7.5 cm. Cortex: 1.2 cm LEFT KIDNEY: 13.0 x 6.1 x 6.8 cm. Cortex: 1.1 cm BLADDER (pre-void):10.3 x 8.9 x 7.3 cm. Volume 466.9 ml BLADDER (post-void): 3.8 x 4.4 x 2.5 cm. Volume 21.8 ml MICTURATED VOLUME: 445.1 ml RIGHT KIDNEY: There is no hydronephrosis or suspicious cortical lesion. A 0.8 cm hyperechoic focus is identified in the superior/mid pole. LEFT KIDNEY: There is no hydronephrosis or suspicious cortical lesion. BLADDER:Normal. Bilateral ureteral jets visualized. No visible wall thickening, mass, or calculus. OTHER:Negative. CONCLUSION: No evidence of obstructive uropathy. There is an echogenic focus in the right kidney measuring 8 mm. No nephrolithiasis in the right kidney identified on the comparison CT. Dictated by: [facility] Physician on 03/24/2020 at 10:57 AM Read in [place] ac
== END | disposition home or self-care (01) ==
LOC: RAD 09:54
PROVIDERS: ATTEND Student in an Organized Health Care Education/Training Program
DX: N20.1 Calculus of ureter (principal)
CPT/HCPCS: 76770